=== PATIENT | female | born 1935 | race Caucasian/White ===

== ENCOUNTER 2017-08-06 16:49 | Inpatient (IN) | payer MEDICARE ==
[2017-08-06 17:18] VITALS: BMI 32.5
[2017-08-06] MEDS ORDERED: Ibuprofen 400 MG TAB PER TUBE PRN (19:03)
[2017-08-06] MEDS: Oxybutynin 5 MG TAB PER TUBE SCH (21:38)
[2017-08-06] MEDS: Furosemide 40 MG TAB PER TUBE SCH (21:38)
[2017-08-06] MEDS: Metoprolol Tartrate 25 MG TAB PER TUBE SCH (21:38)
[2017-08-06] MEDS: Diphenoxylate HCl/Atropine Tablet PER TUBE SCH (21:38)
[2017-08-06] MEDS ORDERED: Gabapentin 400 MG CAP PO SCH (21:45)
[2017-08-06] MEDS: SACUBITRIL PER TUBE SCH (21:46)
[2017-08-06] MEDS: VALSARTAN PER TUBE SCH (21:46)
[2017-08-06 23:06] LABS: Bilirubin Negative (Negative); Blood, Urine Trace (Negative); Clarity Clear (Clear); Glucose, Urine (Dipstick) Negative (Negative); Leukocyte Small (Negative); Nitrite Positive (Negative); Protein, Urine (Dipstick) Negative (Neg-Trace); Specific Gravity, Urine 1.015 (1.005-1.030); Urobilinogen 0.2 mg/dL (0.2-1.0)
[2017-08-06 23:16] LABS: Bacteria/HPF Rare-Few HPF (None Seen); Squamous Epithelial 0-3 HPF (0-3)
[2017-08-07] MEDS: Promethazine 25 MG TAB PER TUBE PRN ×2 (00:09→17:34)
[2017-08-07 05:14] LABS: #Basophils 0.1 thou/uL (0.0-0.2); #Eosinphils 0.3 thou/uL (0.0-0.7); #Lymphocytes 0.9 thou/uL (1.20-3.40); #Monocytes 0.9 thou/uL (0.11-0.59); #Neutrophils 7.5 thou/uL (1.40-6.50); %Basophils 1.1 % (0.0-1.0); %Eosinophils 3.2 % (0.0-10.0); %Lymphocytes 9.3 % (21.0-51.0); %Monocytes 8.8 % (0.0-10.0); %Neutrophils 77.6 % (42.0-75.0); Hemoglobin 13.1 g/dL (12.0-16.0); Mean Corpuscular HGB CONC 32.1 g/dL (32.0-36.0); Mean Corpuscular Hemoglobin 29.7 pg (27.0-31.0); Mean Corpuscular Volume 92.6 fl (81.0-99.0); Mean Platelet Volume 10.9 fL (7.4-10.4); Platelet Count 259 thou/uL (130-400); White Blood Cell (WBC) Count 9.6 thou/uL (4.8-10.8)
[2017-08-07 05:32] LABS: ALT (SGPT) 20 U/L (8-55); AST (SGOT) 27 U/L (5-34); Alkaline Phosphatase 72 U/L (40-150); Anion Gap 11 mmol/L (10-20); BUN (Urea Nitrogen) 15 mg/dL (9.8-20.1); Bilirubin, Total 0.2 mg/dL (0.2-1.2); Calc. Creatinine Clearance 103 mL/min (70-130); Carbon Dioxide 36 mmol/L (23-31); Chloride 91 mmol/L (98-107); Estimated GFR-MDRD Greater than 90; Globulin 2.8 g/dL (2.4-3.5); Glucose 137 mg/dL (83-110); Protein, Total 5.8 g/dL (6.0-8.3); Sodium 134 mmol/L (136-145)
[2017-08-07] MEDS: Levothyroxine 150 MCG TAB PER TUBE SCH (05:36)
[2017-08-07] MEDS ORDERED: Meloxicam 7.5 MG TAB PER TUBE SCH ×2 (09:00)
[2017-08-07] MEDS: CeleCOXIB 100 MG CAP PER TUBE SCH (09:02)
[2017-08-07] MEDS: Gabapentin 300 MG CAP PO SCH (09:03)
[2017-08-07] MEDS: Potassium Chloride 10 MEQ TAB PER TUBE SCH (09:03)
[2017-08-07] MEDS: Primidone 50 MG TAB PER TUBE SCH (09:03)
[2017-08-07] MEDS: Furosemide 40 MG TAB PER TUBE SCH ×2 (09:04→21:22)
[2017-08-07] MEDS: Diphenoxylate HCl/Atropine Tablet PER TUBE SCH ×4 (09:04→21:21)
[2017-08-07] MEDS: Citalopram 10 MG TAB PER TUBE SCH (09:04)
[2017-08-07] MEDS: Oxybutynin 5 MG TAB PER TUBE SCH ×4 (09:04→21:22)
[2017-08-07] MEDS: Aspirin 325 MG TAB PER TUBE SCH (09:04)
[2017-08-07] MEDS: Metoprolol Tartrate 25 MG TAB PER TUBE SCH ×2 (09:04→21:21)
--- NOTE | 2017-08-07 11:02 | HP ---
DATE OF SERVICE: 08/07/2017 HISTORY OF PRESENT ILLNESS: Ms. Shirley is an 82-year-old morbidly obese white female who initially p resented to [facility], lethargic, confused with mental status changes. She had a chest x-ray which revealed a dense right peritracheal left basilar atelectasis or infiltrate. CT s can without contrast showed a severely dilated fluid-filled esophagus. Dr. Pratt scoped her and found large amount of solids and liquids in the esophagus all the way up to esophageal sphincter. Th byron were removed. The patient was placed in the hospital under the diagnosis of pneumonia. She was treated with antibiotics and unfortunately had some ST wave changes and indeterminate troponin. She had a cardiac catheterization done by Dr. Jaramillo, which did reveal first diagonal branch of the left anterior descending coronary artery had a 60% stenosis. Otherwise, blood vessels were open. She did have a stress-induced cardiomyopathy with a left ventricular ejection fraction of 25%-29%. She was also noted to have acute systolic and diastolic congestive heart failure, which is a significant decr ease from her baseline. Dr. Jaramillo thought it was a stress induced stress related cardiomyopathy. Patient also had difficulty with her PEG tube and I was told that her J tube replaced by Surgery, but she states that they could not find a J tube, so they did not. Nonetheless, patient was stabilized, was transferred here because of extreme weakness because she als o has a right hbjcd-[id number]-wwwu amputation. SUBJECTIVE: The patient states she is doing well except when they transferred her medications from [facility] to this hospital, they messed them all up, so we went over those in detail. PAST MEDICAL HISTORY: Significant for multiple problems including, 1. Achalasia which was diagnosed at [facility]. 2. COPD. 3. Parkinson's, followed by Dr. Frye. 4. Chronic pain, followed by Dr. Frye, 5. Recurrent small-bowel obstruction. 6. Reflex sympathetic dystrophy, followed by Dr. Hensley. 7. Hypothyroidism. 8. History of aspiration pneumonia, followed by Dr. Vaughn. 9. 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 10. Diverticulosis. 11. Macular degeneration. 12. Systolic and diastolic congestive heart failure with the stress-induced cardiomyopathy, EF 25%-2 9%. 13. Hypothyroidism. 14. Hypertension. 15. Reflux with hiatal hernia. 16. Chronic diarrhea for which she states she takes oxybutynin 5 mg 2 pills 4 times a day. 17. Esophageal stricture with multiple dilatations in the past with a history of Rock's esophagit is and duodenal stricture presently on chronic J tube feeding. 18. Urinary tract infection. 19. Fibromyalgia. 20. Osteoarthritis. 21. Rheumatoid arthritis since 12/2012, mainly the hips, ankles, knees, and hands. 22. Right gnldr-ink-qijp amputations secondary to joint replacement for which the patient was found to be allergic to metal and the implant. 23. Obesity. CONSULTANTS: 1. Gastroenterology, Dr. Pratt. 2. Neurology, Dr. Frye. 3. Chronic pain management, Dr. Frye. 4. Orthopedist Dr. Ware. 5. Worksite Wellness Practitioner, Dr. Vaughn. 6. Traffic Worker, Dr. Hensley. 7. Urologist, Dr. Espinal. 8. GI at [facility], Dr. Barrett. 9. Primary care physician, Dr. Sanchez/Dr. Donnelly. PAST SURGICAL HISTORY: Reveals the patient has had, 1. Tonsillectomy. 2. Thyroidectomy, partial. 3. x3. 4. Hernia repair. 5. Hysterectomy in 1981. 5. Bilateral shoulder replacements. 6. Left knee replaced x2. 7. Right knee gpyvg-sik-jzcu amputation in 2008. 8. In 1981 Bryce mesh placed over stomach for reflux, for GERD done at [facility] in [facility]. 8. Knee replacements. 9. Colonoscopy in 2009. 10. Esophageal dilatation, multiple times. 11. PEG tube placement at [facility]. 12. J tube placement. FAMILY HISTORY: Reveals patient's father had hypothyroidism and glaucoma. The patient's mother had dementia, hypothyroidism, and rheumatoid arthritis. SOCIAL HISTORY: Reveals the patient is . She has 5 children. 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 She lives by herself, but has a da ughter that looks in on her that she states aggravates her and son that recently moved in, but is not very much help. Patient never smoked. She drinks alcohol about 4 ounces daily, mainly in the form of wine. ALLERGIES: Reveals patient is allergic to the followin. CODEINE. 2. MORPHINE. 3. ULTRAM. 4. VICODIN. 5. NAPROSYN. 6. TETRACYCLINE. 7. KEFLEX. 8. SINEMET. 9. QUESTRAN. PRESENT MEDICATIONS: Reveal the patient presently takes the followin. Celebrex 200 mg 1 daily and then meloxicam 15 mg the next day and she alternates these because of the cost of Celebrex. 2. Demerol 50 mg 1 tablet by mouth p.r.n. severe pain. She states Dr. Frye gives her these and s he may take 2-3 in a week. 3. Lomotil p.r.n. 4. Imodium A-D p.r.n. 5. Oxybutynin 2 tablets 3-4 times a day, 5 mg. 6. Levothyroxine 150 mcg daily. 7. Meclizine 1 tablet 4 times a day p.r.n. 8. Primidone 50 mg. 9. Valium 2-3 tabs a day. 10. Gabapentin she takes 1800 mg in the morning and 1200 mg at night. 11. Oxybutynin Extended Release 2 tabs by mouth at bedtime. REVIEW OF SYSTEMS: The patient denies fever or chills. She states she is fatigued. Cardiovascular bobby, the patient denies any chest pain, palpitations or irregular heartbeat. Pulmonary-bobby, she do es have shortness of breath especially with exertion. She has no chronic wheezes or cough. GI bobby, patient is unable to swallow anything at this time and has Speech Therapy look at her and she presen tly in the [facility] protocol. She denies any abdominal pain, nausea, vomiting or diarrhea. She states she actually does have diarrhea all the time and is controlled with oxybutynin 2 pills 4 time s a day. The patient denies any dysuria today. The patient does admit to generalized weakness. PHYSICAL EXAMINATION: GENERAL: This is a well-developed, well-nourished, very pleasant white female, in no apparent distre ss at this time. HEENT: Reveals normocephalic, nontraumatic cranium. Pupils were equally round and reactive. Extrao cular movements are intact. The nose and throat are slightly dry, but clear. NECK: Supple, without masses, nodes or bruits. CHEST: Clear to auscultation. No rales, no rhonchi, no wheezes are heard. HEART: Reveals a regular rate and rhythm with a 2/6 systolic ejection murmur. ABDOMEN: Morbidly obese, soft, nontender, without organomegaly. Normal bowel sounds are noted. No rebound or guarding is noted. J tube is noted in the left mid upper quadrant. GENITOURINARY: Deferred. EXTREMITIES: Reveal right xllao-dmj-nzqd amputation, which is well healed. Left lower extremity is clear. ASSESSMENT: 1. This is a pleasant 82-year-old white female with admission to [facility] for treatment with esophageal stricture with multiple food particles and possible aspiration developing p neumonia. 2. Generalized weakness. 3. Acute systolic and diastolic congestive heart failure with left ejection fraction 25%. 4. LifeVest. 5. Esophageal stricture with malfunctioned J-tube. 6. Acute hypoxic on chronic respiratory failure, patient at baseline 2 liters per nasal cannula. 7. CY-OKA-ZALRNOAS. 8. Achalasia. 9. Chronic obstructive pulmonary disease. 10. Chronic pain. 11. Reflex sympathetic dystrophy followed by Dr. Hensley. 12. Hypothyroidism. 13. Rock esophagitis. 14. Diverticulosis. 15. Rheumatoid arthritis. 16. Macular degeneration. PLAN: 1. Continue to follow the patient closely and adjust her medications as needed. 2. Physical Therapy and Occupational Therapy. 3. Speech Therapy consult, which has already been done, the patient is presently on the Alonzo mcduffie r protocol, otherwise n.p.o. unless she has to have something and she is on honey or nectar thickened liquids only. 4. Continue to follow the patient's labs closely. 5. Stress ulcer prophylaxis. 6. DVT prophylaxis and decubitus precautions. 7. Consult Physical Therapy and Occupational Therapy.
[2017-08-07] MEDS: VALSARTAN PER TUBE SCH ×2 (13:16→21:24)
[2017-08-07] MEDS: SACUBITRIL PER TUBE SCH ×2 (13:16→21:24)
[2017-08-07] MEDS: Gabapentin 400 MG CAP PO SCH (17:34)
[2017-08-07] MEDS: Meclizine HCl 25 MG TAB PER TUBE PRN (17:34)
[2017-08-08] MEDS: Ondansetron ODT 4 MG TAB PO PRN ×2 (02:03→21:01)
[2017-08-08] MEDS: Levothyroxine 150 MCG TAB PER TUBE SCH (06:33)
[2017-08-08] MEDS ORDERED: Guaifenesin DM 100-10/5 ML UDCUP PO PRN (07:16)
[2017-08-08] MEDS: Gabapentin 300 MG CAP PO SCH (07:58)
[2017-08-08] MEDS: Diphenoxylate HCl/Atropine Tablet PER TUBE SCH ×4 (07:58→21:02)
[2017-08-08] MEDS: Aspirin 325 MG TAB PER TUBE SCH (07:59)
[2017-08-08] MEDS: Primidone 50 MG TAB PER TUBE SCH (07:59)
[2017-08-08] MEDS: Metoprolol Tartrate 25 MG TAB PER TUBE SCH ×2 (07:59→21:02)
[2017-08-08] MEDS: Potassium Chloride 10 MEQ TAB PER TUBE SCH (07:59)
[2017-08-08] MEDS: CeleCOXIB 100 MG CAP PER TUBE SCH (08:00)
[2017-08-08] MEDS: Furosemide 40 MG TAB PER TUBE SCH ×2 (08:00→21:02)
[2017-08-08] MEDS: Oxybutynin 5 MG TAB PER TUBE SCH ×4 (08:00→21:02)
[2017-08-08] MEDS: Citalopram 10 MG TAB PER TUBE SCH (08:00)
[2017-08-08] MEDS: SACUBITRIL PER TUBE SCH ×2 (08:01→21:17)
[2017-08-08] MEDS: VALSARTAN PER TUBE SCH ×2 (08:01→21:17)
[2017-08-08] MEDS ORDERED: CeleCOXIB 100 MG CAP PER TUBE SCH (09:00)
--- NOTE | 2017-08-08 09:25 | PRG ---
DATE OF SERVICE: 08/08/2017 DATE OF ADMISSION: 08/06/2017 HISTORY OF PRESENT ILLNESS: Ms. Shirley is an 82-year-old white female that presented to [facility] with mental status changes. She has significantly dilated fluid-filled esophagus. Dr. Pratt scoped her and found a large amount of solids and liquids. The patient was placed in the hospital, and she also had pneumonia. She was treated with antibiotics. Had an indeterminate t roponin with ST-wave changes. She went to cardiac catheterization and Dr. Villafana found a first diago nal branch of the left anterior descending with a 60% stenosis. She also was found to have stress-in duced cardiomyopathy with left ventricular ejection fraction of 25%-29%. She also had acute systolic and diastolic congestive heart failure, which was different from her baseline. She had difficulty w ith her PEG tube and I was told that her J-tube was placed by Surgery, but she did not confirm that. The patient was eventually stabilized and transferred to [facility] for physical therapy and occupational therapy. SUBJECTIVE: The patient said she did not get her meclizine yesterday, and I told her that it was ord ered p.r.n. She also says she did not get her Valium last night, which she takes 30 mg at night. I told her that was way too much that would give her respiratory arrest and we were going to do that. We will give her 10 mg up to t.i.d. If she wants she can only take 10 mg at that bedtime. She agree s with that. OBJECTIVE: VITAL SIGNS: Reveal blood pressure 115/63, pulse 71, respirations 20, O2 of 93% on 3-4 liters nasal cannula, T-max 97.9. GENERAL: This is a well-developed, well-nourished, very pleasant white female, in no apparent distre ss at this time. HEENT: Reveals normocephalic, nontraumatic cranium. Pupils are equally round and reactive. Extraoc ular movements intact. Nose and throat are slightly dry. NECK: Supple, without masses, nodes, or bruits. CHEST: Clear to auscultation. No rales or rhonchi are heard, but wheezes are heard, which are expir atory. Patient has been refusing her nebulizer treatments, and we did talk about her continuing to g et those. CARDIOVASCULAR: Reveals a regular rate and rhythm. A 2/6 systolic ejection murmur is noted. ABDOMEN: Morbidly obese and soft and nontender. J-tube is functioning well. It is not red or irrit ated. GENITOURINARY EXAM: Deferred. EXTREMITIES: Reveal right tkubz-ydo-emiu amputation, which is well healed. Left lower extremity con tinues to be without edema. LABORATORY DATA: No labs were done today. We will repeat labs tomorrow. IMPRESSION: 1. Significant esophageal stricture with J-tube placement. 2. Generalized weakness. 3. Acute systolic and diastolic congestive heart failure with left ejection fraction 25%-29%. 4. LifeVest. 5. Esophageal stricture with malfunctioning J-tube, which has been either replaced or repaired. 6. Acute hypoxemia on chronic respiratory failure. The patient usually at baseline 2 liters per iris al cannula. 7. Patient is a DO NOT INTUBATE. 8. Achalasia. 9. Chronic obstructive pulmonary disease. 10. Chronic pain. 11. Reflex sympathetic dystrophy followed by Dr. Hensley. 12. Hypothyroidism. 13. Rock's esophagitis. 14. Diverticulosis. 15. Rheumatoid arthritis. 16. Macular degeneration. 17. Generalized weakness. PLAN: 1. We will start the patient on some Robitussin-DM for occasional cough. 2. We will repeat labs tomorrow morning. 3. We will continue meclizine p.r.n. 4. Diazepam 10 mg up to 3 times a day. 5. Encouraged the patient to drink water. 6. Stress ulcer prophylaxis. 7. Decubitus precautions. 8. Physical therapy and occupational therapy. 9. Speech therapy. 10. Deep vein thrombosis prophylaxis.
[2017-08-08] MEDS: Gabapentin 400 MG CAP PO SCH (18:52)
[2017-08-08] MEDS: Diazepam 5 MG TAB PO PRN (21:01)
[2017-08-08] MEDS: Meclizine HCl 25 MG TAB PER TUBE PRN (21:02)
[2017-08-09] MEDS: Ondansetron ODT 4 MG TAB PO PRN ×2 (01:56→06:02)
[2017-08-09 05:27] LABS: #Basophils 0.1 thou/uL (0.0-0.2); #Eosinphils 0.4 thou/uL (0.0-0.7); #Lymphocytes 0.9 thou/uL (1.20-3.40); #Neutrophils 7.8 thou/uL (1.40-6.50); %Eosinophils 3.4 % (0.0-10.0); %Monocytes 10.2 % (0.0-10.0); %Neutrophils 76.5 % (42.0-75.0); Mean Corpuscular HGB CONC 32.1 g/dL (32.0-36.0); Mean Corpuscular Hemoglobin 29.8 pg (27.0-31.0); Mean Corpuscular Volume 92.9 fl (81.0-99.0); Mean Platelet Volume 10.5 fL (7.4-10.4); Platelet Count 250 thou/uL (130-400); RBC Distribution Width 13.1 % (11.5-14.5); Red Blood Cell (RBC) Count 4.37 mill/uL (4.20-5.40); White Blood Cell (WBC) Count 10.3 thou/uL (4.8-10.8)
[2017-08-09] MEDS: Levothyroxine 150 MCG TAB PER TUBE SCH (05:29)
[2017-08-09] MEDS: Diazepam 5 MG TAB PO PRN ×2 (05:36→21:20)
[2017-08-09 05:50] LABS: ALT (SGPT) 28 U/L (8-55); AST (SGOT) 29 U/L (5-34); Albumin 3.1 g/dL (3.4-4.8); Alkaline Phosphatase 84 U/L (40-150); Anion Gap 11 mmol/L (10-20); BUN (Urea Nitrogen) 18 mg/dL (9.8-20.1); Bilirubin, Total 0.4 mg/dL (0.2-1.2); Calc. Creatinine Clearance 98 mL/min (70-130); Calcium 9.2 mg/dL (7.8-10.44); Carbon Dioxide 37 mmol/L (23-31); Chloride 92 mmol/L (98-107); Estimated GFR-MDRD Greater than 90; Globulin 2.9 g/dL (2.4-3.5); Glucose 130 mg/dL (83-110); Potassium 4.3 mmol/L (3.5-5.1); Sodium 136 mmol/L (136-145)
[2017-08-09] MEDS: Primidone 50 MG TAB PER TUBE SCH (08:21)
[2017-08-09] MEDS: Citalopram 10 MG TAB PER TUBE SCH (08:21)
[2017-08-09] MEDS: Gabapentin 300 MG CAP PO SCH (08:21)
[2017-08-09] MEDS: Oxybutynin 5 MG TAB PER TUBE SCH ×4 (08:22→21:19)
[2017-08-09] MEDS: Furosemide 40 MG TAB PER TUBE SCH ×2 (08:22→21:19)
[2017-08-09] MEDS: Potassium Chloride 10 MEQ TAB PER TUBE SCH (08:22)
[2017-08-09] MEDS: Metoprolol Tartrate 25 MG TAB PER TUBE SCH ×2 (08:23→21:20)
[2017-08-09] MEDS: Aspirin 325 MG TAB PER TUBE SCH (08:23)
[2017-08-09] MEDS: CeleCOXIB 100 MG CAP PER TUBE SCH (08:23)
[2017-08-09] MEDS: VALSARTAN PER TUBE SCH (09:01)
[2017-08-09] MEDS: SACUBITRIL PER TUBE SCH (09:01)
[2017-08-09] MEDS: Diphenoxylate HCl/Atropine Tablet PER TUBE SCH ×4 (14:02→21:19)
[2017-08-09] MEDS: Gabapentin 400 MG CAP PO SCH (17:07)
[2017-08-09] MEDS: Meclizine HCl 25 MG TAB PER TUBE PRN (21:19)
[2017-08-09] MEDS: Sacubitril 24.5 MG/Valsartan 25.5 MG TABLET PER TUBE SCH (21:20)
--- NOTE | 2017-08-09 22:12 | PRG ---
DATE OF ADMISSION: 08/06/2017 DATE OF SERVICE: 08/09/2017 HISTORY OF PRESENT ILLNESS: Ms. Shirley is a very pleasant 82-year-old white female that was admitted to [facility] with mental status changes. She was found to have a dilated fluid filled esophagus and Dr. Pratt had scoped her and removed all the solids and liquids. She was p laced in the hospital and also had pneumonia. She was treated with antibiotics. She had indetermina te troponins with ST wave changes. Unfortunately, she did have a cardiac catheterization and Dr. Kranthi calderon found a first diagonal branch of the left anterior descending with a 60% stenosis, otherwise open . She also had a stress-induced cardiomyopathy with left ventricular ejection fraction of 25%-29%. She had acute systolic and diastolic heart failure, which was different from her baseline. Eventuall y, she was stabilized, a PEG tube was placed and actually a J-tube was replaced by Surgery. The manjit ent was eventually stabilized and transferred to [facility] PT and OT. SUBJECTIVE: The patient has no complaints today except she would like her meclizine schedule rather than p.r.n., I would rather not do that. Nonetheless, otherwise she is doing somewhat better. OBJECTIVE: VITAL SIGNS: Revealed blood pressure this morning was 131/82, pulse 59-76, respirations 17-20, O2 sa t 94% on 3-3.5 liters. LABORATORY DATA: Reveals white counts 10,000, hemoglobin 13, hematocrit 40.6, platelet count 250,000 . Electrolytes reveal sodium 136, potassium 4.3, chloride 92, carbon dioxide 37 with a creatinine of 0. 61, GFR greater than 90. Her BNP is 151. PHYSICAL EXAMINATION: GENERAL: This is a well-developed, well-nourished, very pleasant, morbidly obese white female in no apparent distress at this time. HEENT: Reveals normocephalic, nontraumatic cranium. Pupils are equally round and reactive. Extraoc ular movements intact. Nose and throat are still slightly dry. NECK: Supple, without masses, nodes or bruits. LUNGS: Chest is clear to auscultation. No rales, no rhonchi, no wheezes were heard. No cough is no kehinde. The patient is refusing nebulizer treatments, but we will need to continue those for at least p .r.n. HEART: Reveals a regular rate and rhythm. A 2/6 systolic ejection murmur is noted. ABDOMEN: Morbidly obese and soft. It is nontender, no rebound or guarding is noted. J-tube is func tioning well. It is not red, irritated or leaking. GENITOURINARY: Deferred. EXTREMITIES: Reveal right xpnww-jnk-rwtc amputation, well healed. Left lower extremity continues to be without edema. IMPRESSION: 1. Esophageal stricture with J-tube placement. 2. Generalized weakness secondary to acute systolic and diastolic congestive heart failure with left ejection fraction 25%-29%. 3. LifeVest. 4. Esophageal stricture with malfunctioning J-tube, which has been either replaced or repaired. 5. Acute hypoxemia on chronic respiratory failure. 6. The patient is a do not intubate. 7. Achalasia. 8. Chronic obstructive pulmonary disease. 9. Chronic pain. 10. Reflex sympathetic dystrophy followed by Dr. Hensley. 11. Hypothyroidism. 12. Rock's esophagitis. 13. Diverticulosis. 14. Rheumatoid arthritis. 15. Macular degeneration. 16. Generalized weakness. PLAN: 1. Continue meclizine p.r.n. 2. Diazepam 10 mg p.r.n. up to 3 times daily. 3. Encourage the patient to drink water. 4. Stress ulcer prophylaxis. 5. Decubitus precautions. 6. Physical therapy and occupational therapy. 7. Speech therapy. 8. Deep venous thrombosis prophylaxis. 9. Do not intubate.
[2017-08-10] MEDS: Levothyroxine 150 MCG TAB PER TUBE SCH (06:05)
[2017-08-10] MEDS: Gabapentin 300 MG CAP PO SCH (08:59)
[2017-08-10] MEDS: Sacubitril 24.5 MG/Valsartan 25.5 MG TABLET PER TUBE SCH ×2 (09:00→21:13)
[2017-08-10] MEDS: CeleCOXIB 100 MG CAP PER TUBE SCH (09:00)
[2017-08-10] MEDS: Furosemide 40 MG TAB PER TUBE SCH ×2 (09:00→21:14)
[2017-08-10] MEDS: Potassium Chloride 10 MEQ TAB PER TUBE SCH (09:00)
[2017-08-10] MEDS: Diphenoxylate HCl/Atropine Tablet PER TUBE SCH ×4 (09:01→21:13)
[2017-08-10] MEDS: Primidone 50 MG TAB PER TUBE SCH (09:01)
[2017-08-10] MEDS: Metoprolol Tartrate 25 MG TAB PER TUBE SCH ×2 (09:02→21:12)
[2017-08-10] MEDS: Aspirin 325 MG TAB PER TUBE SCH (09:02)
[2017-08-10] MEDS: Citalopram 10 MG TAB PER TUBE SCH (09:02)
[2017-08-10] MEDS: Oxybutynin 5 MG TAB PER TUBE SCH ×4 (09:02→21:14)
[2017-08-10] MEDS: Promethazine 25 MG TAB PER TUBE PRN (09:19)
[2017-08-10] MEDS: Gabapentin 400 MG CAP PO SCH (17:36)
[2017-08-10] MEDS: Meclizine HCl 25 MG TAB PER TUBE PRN (21:10)
[2017-08-10] MEDS: Ondansetron ODT 4 MG TAB PO PRN (21:10)
[2017-08-10] MEDS: Diazepam 5 MG TAB PO PRN (21:14)
--- NOTE | 2017-08-11 02:15 | PRG ---
DATE OF SERVICE: 08/10/2017 SUBJECTIVE: Ms. Shirley is a very pleasant 82-year-old white female that is very persistent about the way she would like to take her medicines whether it is appropriate or not. Patient apparently was brought to [facility] with mental status changes. She had a dilated fluid filled esophagus. Dr. Pratt had to suction it all out. She was placed in the h ospital and had pneumonia. She was treated with antibiotics. She also had indeterminate troponins w ith ST-T wave changes. Unfortunately, she did have a cardiac catheterization and Dr. Jaramillo found th e first diagonal branch of left anterior descending with 60% stenosis. She had stress-induced cardio myopathy with left ventricular ejection fraction 25-29%. She had acute systolic and diastolic heart failure which was different from her baseline. Eventually, she was stabilized and transferred with a PEG tube which was switched her J tube. Patient was transferred to [facility] for physical therapy and occupational therapy. The patient states she is doing well except she would like her me clizine scheduled rather than p.r.n. I told her yesterday that we would not do that. OBJECTIVE: VITAL SIGNS: Reveal blood pressure this morning 110/74, pulse 59-74, respirations 18-20, O2 sat 94% on 3 liters nasal cannula. T-max 98.2. No labs were done today. GENERAL: This is a well-developed, well-nourished, morbidly obese white female in no apparent distre ss at this time. HEENT: Reveals normocephalic, nontraumatic cranium. Pupils are equally round and reactive. Extraoc ular movements are intact. Nose and throat are slightly dry. NECK: Supple, without masses, nodes or bruits. LUNGS: Chest is clear to auscultation. No rales, rhonchi or wheezes are heard. CARDIOVASCULAR: Reveals a regular rate and rhythm without murmurs, gallops or rubs. Patient does milan ve a 2/6 systolic ejection murmur. ABDOMEN: Morbidly obese, soft, nontender, without organomegaly. Normal bowel sounds are noted. J t ube is still functioning well. It is not red, irritated or leaking. : Deferred. 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 Left lower extremity cont inues to be without any edema. IMPRESSION: 1. Esophageal stricture with placement of J tube and feedings. 2. Generalized weakness. 3. Acute systolic and diastolic congestive heart failure with an ejection fraction of 25-29%. 4. LifeVest. 5. Esophageal stricture. 6. Acute hypoxemia on chronic respiratory failure. 7. Patient is DO NOT INTUBATE. 8. Achalasia. 9. Chronic obstructive pulmonary disease. 10. Chronic pain. 11. Reflex sympathetic dystrophy followed by Dr. Hensley. 12. Hypothyroidism. 13. Rock's esophagitis. 14. Diverticulosis. 15. Rheumatoid arthritis. 16. Macular degeneration. 17. Generalized weakness. PLAN: 1. Continue meclizine p.r.n. 2. Diazepam 10 mg p.r.n. up to 3 times daily. 3. Encourage the patient to drink water. 4. Stress ulcer prophylaxis. 5. Decubitus precautions. 6. Speech therapy. 7. Continue physical therapy and occupational therapy. 8. Deep venous thrombosis prophylaxis. 9. DO NOT INTUBATE.
[2017-08-11] MEDS: Levothyroxine 150 MCG TAB PER TUBE SCH (06:25)
[2017-08-11] MEDS: Potassium Chloride 10 MEQ TAB PER TUBE SCH (09:38)
[2017-08-11] MEDS: Primidone 50 MG TAB PER TUBE SCH (09:39)
[2017-08-11] MEDS: Aspirin 325 MG TAB PER TUBE SCH (09:39)
[2017-08-11] MEDS: Gabapentin 300 MG CAP PO SCH (09:39)
[2017-08-11] MEDS: Citalopram 10 MG TAB PER TUBE SCH (09:40)
[2017-08-11] MEDS: Diphenoxylate HCl/Atropine Tablet PER TUBE SCH ×4 (09:40→22:14)
[2017-08-11] MEDS: Metoprolol Tartrate 25 MG TAB PER TUBE SCH ×2 (09:40→22:14)
[2017-08-11] MEDS: Sacubitril 24.5 MG/Valsartan 25.5 MG TABLET PER TUBE SCH ×2 (09:40→22:14)
[2017-08-11] MEDS: Furosemide 40 MG TAB PER TUBE SCH ×2 (09:40→22:14)
[2017-08-11] MEDS: Oxybutynin 5 MG TAB PER TUBE SCH ×4 (09:40→22:14)
[2017-08-11] MEDS: CeleCOXIB 100 MG CAP PER TUBE SCH (09:40)
[2017-08-11] MEDS: Ondansetron ODT 4 MG TAB PO PRN (09:54)
[2017-08-11] MEDS: Promethazine 25 MG TAB PER TUBE PRN (13:08)
[2017-08-11] MEDS: Meclizine HCl 25 MG TAB PER TUBE PRN (13:10)
[2017-08-11] MEDS: Gabapentin 400 MG CAP PO SCH (19:09)
--- NOTE | 2017-08-11 21:24 | PRG ---
DATE OF SERVICE: 08/11/2017 HISTORY OF PRESENT ILLNESS: Ms. Shirley is an 82-year-old white female brought to [facility] with mental status changes. She had a dilated fluid filled esophagus. Dr. Pratt did an EGD and suctioned out all the fluids. She also had indeterminate troponins with ST-T wave change s. She did have a cardiac catheterization. Dr. Jay found his first diagonal branch of the left a nterior descending with 60% stenosis. She also has stress-induced cardiomyopathy, left ventricular e jection fraction of 25-29%. She had acute systolic and diastolic heart failure which is different fr om her baseline. Eventually, she was stabilized and transferred with a J tube to [facility] for continued feedings and physical therapy and occupational therapy. SUBJECTIVE: The patient, this afternoon probably between 4:30 and 6:30, became poorly responsive. A code green was called and patient was brought down to the emergency room where she was evaluated by the ER physician. She was awake and alert and talkative, but much less responsive than usual. They ended up doing a chest CT with contrast and had some extravasation of some of the dye from the esopha tamanna into the chest cavity. This indicates most likely esophageal rupture or perforation. The patient was told about this and whether she would like to go to [facility] fo r further evaluation by a GI specialist and possibly have a surgery, she said definitely not. She di d not want to have any more surgery, she did not want any significant intervention done on her. She states she did not want to be intubated. She states she does not want CPR. In fact, she says she wa nts to become a DNR. I reiterated that again with that meant and that we would possibly call in hosp ice, she said that was fine. Then she asked me to call her son, Kyler and give him the news. I did call Kyler Shirley the son and indicated that his mom was ill and that she did not want to do an y further surgeries, did not want to be intubated, and did not want to go back to the hospital in [place]. He felt he understood. I did explain to him the ramifications of the perforated esoph rehan and he said he understood. Patient is alert and coherent, oriented and request DNR. SUBJECTIVE: VITAL SIGNS: At this time reveal blood pressure this morning 158/70, pulse 59-66, respirations 20, O 2 sat 92% on 3 to 3-1/2 liters. GENERAL: Reveals a well-developed, well-nourished, morbidly obese white female in no apparent distre ss at this time. HEENT: Reveals normocephalic, nontraumatic cranium. Pupils are equally round and reactive. Extraoc ular movements are intact. Nose and throat are slightly dry. NECK: Supple, without masses, nodes or bruits. IJ is noted in the left internal jugular vein as acc ess from the ER. LUNGS: Chest is distant. No rales, no rhonchi, no wheezes are heard. CARDIOVASCULAR: Reveals a regular rate and rhythm without murmurs, gallops or rubs. The patient church s have a 2/6 systolic ejection murmur. ABDOMEN: Morbidly obese, soft, nontender. Normal bowel sounds are still heard. J tube is still fun ctioning, not red, not irritated, no infiltrate. : Deferred. 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 Left lower extremity cont inues to have no significant edema at this time. IMPRESSION: 1. Most likely esophageal rupture or perforation. 2. Generalized weakness. 3. Acute systolic and diastolic congestive heart failure with ejection fraction of 25-30%. 4. LifeVest. 5. Esophageal stricture. 6. Acute hypoxia on top of chronic respiratory failure. 7. Patient is now a DNR. 8. Achalasia. 9. Chronic obstructive pulmonary disease. 10. Chronic pain. 11. Reflex sympathetic dystrophy followed by Dr. Mello. 12. Hypothyroidism. 13. Rock's esophagitis. 14. Diverticulosis. 15. Rheumatoid arthritis. 16. Macular degeneration. 17. Generalized weakness. PLAN: 1. Continue present medications. 2. Stress ulcer prophylaxis. 3. The patient is n.p.o. 4. Decubitus precautions. 5. Speech therapy. 6. Continue PT and OT. 7. Deep venous thrombosis prophylaxis. 8. DO NOT INTUBATE and the patient is a DNR. 9. We will discuss hospice tomorrow.
[2017-08-12] MEDS: Levothyroxine 150 MCG TAB PER TUBE SCH (06:28)
[2017-08-12] MEDS: Aspirin 325 MG TAB PER TUBE SCH (09:14)
[2017-08-12] MEDS: Primidone 50 MG TAB PER TUBE SCH (09:18)
[2017-08-12] MEDS: Potassium Chloride 10 MEQ TAB PER TUBE SCH (09:18)
[2017-08-12] MEDS: Metoprolol Tartrate 25 MG TAB PER TUBE SCH ×2 (09:19→21:33)
[2017-08-12] MEDS: Sacubitril 24.5 MG/Valsartan 25.5 MG TABLET PER TUBE SCH ×2 (09:19→21:33)
[2017-08-12] MEDS: Citalopram 10 MG TAB PER TUBE SCH (09:19)
[2017-08-12] MEDS: Oxybutynin 5 MG TAB PER TUBE SCH ×4 (09:19→21:33)
[2017-08-12] MEDS: CeleCOXIB 100 MG CAP PER TUBE SCH (09:19)
[2017-08-12] MEDS: Furosemide 40 MG TAB PER TUBE SCH ×2 (09:20→21:33)
[2017-08-12] MEDS: Diphenoxylate HCl/Atropine Tablet PER TUBE SCH ×4 (09:23→21:33)
[2017-08-12] MEDS: Gabapentin 300 MG CAP PO SCH (10:21)
[2017-08-12] MEDS: Gabapentin 400 MG CAP PO SCH (17:09)
--- NOTE | 2017-08-12 18:49 | PRG ---
DATE OF SERVICE: 08/22/2017 DATE OF ADMISSION: 08/12/2017 HISTORY OF PRESENT ILLNESS: Ms. Shirley is a very pleasant 82-year-old white female brought to [facility] with mental status changes. She had a significantly dilated fluid filled es ophagus. Dr. Pratt had done an EGD and suctioned out all the fluids. She also had indeterminate troponins with ST-T wave changes. She did have a cardiac catheterization and Dr. Jaramillo found a fir st diagonal branch of the left anterior descending with a 60% stenosis. She also had a stress induce d cardiomyopathy with a left ejection fraction of 25% to 29%. She had had a history of systolic and diastolic heart failure, which is different from her baseline. She was eventually stabilized, had to have her J-tube replaced and was transferred to [facility] for continued feedings th rough the J-tube, physical therapy, and occupational therapy. Yesterday, the patient became unresponsive, brought to the ER where it took about an hour before she regained her previous responsiveness. During that time, she had a CT scan done with contrast, which revealed a leak in her esophagus. Leaked into both sides of the chest cavity. We presented the manjit ent with her alternative to go to return to [facility] where they would most like ly try to fix surgically and she said she did not want to go there. She states she was a DNR and D an d I and she was not going to have any more surgery. We did discuss hospice placement and she was giv en the opportunity to think about it overnight. This morning, the patient did say she wanted to choose the hospice for now, so she can go home and sp ent time with her little dog. She did contact hospice and they came and visited most likely will sta rt that tomorrow, we make arrangements for her to be transferred home with some type of caregivers. PHYSICAL EXAMINATION: VITAL SIGNS: Blood pressure this morning was 124/64, pulse 60 to 74, respirations 18 to 20, O2 sat 9 2% to 95% on 4 liters nasal cannula. T-max was 97.9. GENERAL: This is a well-developed, well-nourished, very pleasant, somewhat obese white female with I J catheter in her left neck. HEENT: Reveals normocephalic, nontraumatic cranium. Pupils are equally round and reactive. Extraoc ular movements intact. Nose and throat are slightly dry. NECK: Supple, without masses, nodes, or bruits. CHEST: Clear to auscultation. No rales, no rhonchi, no wheezes are heard. CARDIOVASCULAR: Reveals a regular rate and rhythm without murmurs, gallops, or rubs. ABDOMEN: Soft, obese, nontender, without organomegaly. Normal bowel sounds are noted. No rebound o r guarding is noted. : Deferred. EXTREMITIES: Reveal no clubbing, cyanosis, or edema. Right [id number] amputation is noted, whic h is well healed. LABORATORY DATA: No labs were done today per patient request. IMPRESSION: 1. Esophageal perforation. 2. Patient is now a DO NOT RESUSCITATE. 3. Generalized weakness. 4. Acute systolic and diastolic heart failure with ejection fraction 25% to 30%. 5. LifeVest, which she refused to wear at this time. 6. Esophageal stricture. 7. Acute hypoxemia on top of chronic respiratory failure. 8. Achalasia. 9. Chronic obstructive pulmonary disease. 10. Chronic pain. 11. Reflex sympathetic dystrophy, followed by Dr. Hensley. 12. Hypothyroidism. 13. Rock's esophagitis. 14. Diverticulosis. 15. Rheumatic arthritis, rheumatoid arthritis. 16. Macular degeneration. PLAN: 1. Continue present medications. 2. Continue stress ulcer prophylaxis. 3. The patient is n.p.o. at this time. 4. The patient has been seen by hospice care and we will get her equipment to her house and arrange for some type of caregivers to be there. Hospice will continue at her home most likely either Wednesday or Wednesday depending on how arrangements can be made with her caregivers. 5. Put speech therapy, physical therapy, and occupational therapy on hold. 6. The patient is refusing most of her medications. 7. The patient is a DNR and [id number]. 8. The patient has made those discussions and is awake and alert and oriented x3 to person, place, a nd time and can make that.
[2017-08-12] MEDS: Meclizine HCl 25 MG TAB PER TUBE PRN (21:39)
[2017-08-12] MEDS: Diazepam 5 MG TAB PO PRN (21:39)
[2017-08-12] MEDS: diphenhydrAMINE 25 MG CAP PER TUBE PRN (23:48)
[2017-08-13] MEDS: Levothyroxine 150 MCG TAB PER TUBE SCH (06:15)
[2017-08-13] MEDS: Potassium Chloride 10 MEQ TAB PER TUBE SCH (09:04)
[2017-08-13] MEDS: Gabapentin 300 MG CAP PO SCH (09:05)
[2017-08-13] MEDS: Diphenoxylate HCl/Atropine Tablet PER TUBE SCH ×4 (09:06→20:32)
[2017-08-13] MEDS: Aspirin 325 MG TAB PER TUBE SCH (09:06)
[2017-08-13] MEDS: Sacubitril 24.5 MG/Valsartan 25.5 MG TABLET PER TUBE SCH ×2 (09:06→20:33)
[2017-08-13] MEDS: Furosemide 40 MG TAB PER TUBE SCH ×2 (09:07→20:33)
[2017-08-13] MEDS: CeleCOXIB 100 MG CAP PER TUBE SCH (09:07)
[2017-08-13] MEDS: Citalopram 10 MG TAB PER TUBE SCH (09:07)
[2017-08-13] MEDS: Primidone 50 MG TAB PER TUBE SCH (09:07)
[2017-08-13] MEDS: Metoprolol Tartrate 25 MG TAB PER TUBE SCH ×2 (09:07→20:33)
[2017-08-13] MEDS: Oxybutynin 5 MG TAB PER TUBE SCH ×4 (09:07→20:33)
[2017-08-13] MEDS: Meclizine HCl 25 MG TAB PER TUBE PRN ×2 (09:10→20:33)
[2017-08-13] MEDS: Gabapentin 400 MG CAP PO SCH (17:00)
[2017-08-13] MEDS: diphenhydrAMINE 25 MG CAP PER TUBE PRN (20:33)
[2017-08-13] MEDS: Promethazine 25 MG TAB PER TUBE PRN (20:33)
[2017-08-13] MEDS: Diazepam 5 MG TAB PO PRN (21:55)
--- NOTE | 2017-08-13 23:48 | DIS ---
DATE OF ADMISSION: 08/06/2017 DATE OF DISCHARGE: 08/14/2017 Ms. Shirley is an 82-year-old white female who had mental status changes and was seen in the emergency room at [facility]. On x-ray and CT scan, she had significant dilated fluid-barb led esophagus. Dr. Pratt did an EGD and suction out all fluids. She also had significant cardia c problem with ST wave changes, indeterminate troponins, and she had a cardiac catheterization done b y Dr. Jaramillo. Her first diagonal branch of the left anterior descending with a 60% stenosis. She al so had a history of systolic and diastolic heart failure and an induced cardiomyopathy with left vent ricular ejection fraction of 25-29%. She eventually stabilized, had her J tube adjusted and was dover sferred to [facility] for continued feeding through the J tube, physical therapy, and occupational therapy. The patient became unresponsive while in the hospital and was sent to the ER where she had a CT scan with contrast was done, which revealed a leak in her esophagus. The patient was awake and alert and not under the influence of any narcotics and we had a significant discussion about what she wanted to do. The patient stated she did not want surgery. She said she is a DNI and now she is a DNR and she would think about it, but would most likely decide to go home w [facility] hospice. Next morning, the patient did elect to evaluate hospice and Hospice came and talked to the patient an d she signed to go home tomorrow under the care of hospice. She is a DNR, which is in the chart. SUBJECTIVE: The patient states she is doing well today. She states she would like to have some coff ee and I reiterated that if she drank some cough or drank anything most likely would go anterior ches t cavity and cause more pain and irritation, but since she was on hospice, she can do what she wants, we will try to make her comfortable, but that may make her much more uncomfortable. I recommended p ossibly putting some coffee in her mouth, swishing it around and splitting it out. Vital signs reveal blood pressure this morning was 128/68, pulse 67-69, respirations 20, O2 sat 95-96 % on 3 liters. Temperature max was 97.4. No labs were done today since the patient is a DNR. PHYSICAL EXAMINATION: GENERAL: This is a well-developed, well-nourished, awake, alert, and oriented x3 white female, in no apparent distress at this time. HEENT: Reveals normocephalic, nontraumatic cranium. Pupils are equal, round, and reactive. Extraoc ular movements are intact. Nose and throat are slightly dry, but clear. NECK: Supple, without masses, nodes, or bruits. CHEST: Clear to auscultation. No rales, rhonchi, or wheezes are heard. HEART: Reveals regular rate and rhythm without murmurs, gallops, or rubs. ABDOMEN: Soft, obese, nontender, without organomegaly, decreased bowel sounds are noted. No rebound or guarding is noted. GENITOURINARY: Deferred. EXTREMITIES: No clubbing, cyanosis, or edema. Right [id number] amputation is noted which is sti ll well healed. No labs were done today. IMPRESSION: 1. Esophageal perforation. 2. Patient is now a DO NOT RESUSCITATE. 3. Patient is on hospice. 4. Generalized weakness. 5. Acute systolic and diastolic heart failure with ejection fraction 25-30%. 6. LifeVest, which the patient was taken off since that she is not going to wear it because she is a DO NOT RESUSCITATE. 7. Esophageal stricture. 8. Acute hypoxemia on top of chronic respiratory failure. 9. Achalasia, which is chronic, initially diagnosed at [facility]. 10. Chronic obstructive pulmonary disease. 11. Chronic pain. 12. History of reflex sympathetic dystrophy followed by Dr. Mello. 13. Hypothyroidism. 14. Rock's esophagitis. 15. Diverticulosis. 16. Rheumatoid arthritis. 17. Macular degeneration. PLAN: 1. The patient is to be discharged tomorrow morning. 2. We will continue stress ulcer prophylaxis as needed. 3. The patient is n.p.o. at this time and getting her J tube. 4. Patient has been accepted by hospice care under the company of [employer]. 5. Equipments should be at her house today or tomorrow. 6. The patient is discharged off speech therapy, off physical therapy, and off occupational therapy. 7. The patient refusing most her medications anyway. 8. The patient is a DNR and as documented. 9. I did talk with the patient's son, Kyler, and he is aware of everything is happening and I answer ed all of his questions. I answered all of her questions.
[2017-08-14] MEDS: Levothyroxine 150 MCG TAB PER TUBE SCH (06:46)
[2017-08-14 07:33] VITALS: BP 160/73; TEMP 97.7
[2017-08-14] MEDS: Gabapentin 300 MG CAP PO SCH (08:58)
[2017-08-14] MEDS: CeleCOXIB 100 MG CAP PER TUBE SCH (08:59)
[2017-08-14] MEDS: Primidone 50 MG TAB PER TUBE SCH (09:00)
[2017-08-14] MEDS: Potassium Chloride 10 MEQ TAB PER TUBE SCH (09:00)
[2017-08-14] MEDS: Citalopram 10 MG TAB PER TUBE SCH (09:01)
[2017-08-14] MEDS: Oxybutynin 5 MG TAB PER TUBE SCH (09:01)
[2017-08-14] MEDS: Aspirin 325 MG TAB PER TUBE SCH (09:01)
[2017-08-14] MEDS: Diphenoxylate HCl/Atropine Tablet PER TUBE SCH (09:01)
[2017-08-14] MEDS: Furosemide 40 MG TAB PER TUBE SCH (09:01)
[2017-08-14] MEDS: Metoprolol Tartrate 25 MG TAB PER TUBE SCH (09:02)
[2017-08-14] MEDS: Meclizine HCl 25 MG TAB PER TUBE PRN (09:02)
[2017-08-14] MEDS: Sacubitril 24.5 MG/Valsartan 25.5 MG TABLET PER TUBE SCH (09:03)
== END 2017-08-14 10:30 | disposition hospice, home (50) | DRG 391 ==
LOC: NAV ACUTE 16:49
PROVIDERS: ADMIT Family Medicine; ATTEND Family Medicine
DX: K22.2 Esophageal obstruction (principal); J18.9 Pneumonia, unspecified organism; J96.21 Acute and chronic respiratory failure with hypoxia; K22.3 Perforation of esophagus; G20 Parkinson's disease; I11.0 Hypertensive heart disease with heart failure; I42.8 Other cardiomyopathies; E66.01 Morbid (severe) obesity due to excess calories; I50.42 Chronic combined systolic (congestive) and diastolic (congestive) heart failure; G90.50 Complex regional pain syndrome I, unspecified; I42.9 Cardiomyopathy, unspecified; Z51.5 Encounter for palliative care; K22.0 Achalasia of cardia; Z68.32 Body mass index [BMI] 32.0-32.9, adult; J44.9 Chronic obstructive pulmonary disease, unspecified; G89.29 Other chronic pain; E03.9 Hypothyroidism, unspecified; K20.9 Esophagitis, unspecified; K57.90 Diverticulosis of intestine, part unspecified, without perforation or abscess without bleeding; H35.30 Unspecified macular degeneration; K44.9 Diaphragmatic hernia without obstruction or gangrene; K52.9 Noninfective gastroenteritis and colitis, unspecified; M79.7 Fibromyalgia; M19.90 Unspecified osteoarthritis, unspecified site; M06.9 Rheumatoid arthritis, unspecified; Z89.611 Acquired absence of right leg above knee; Z88.8 Allergy status to other drugs, medicaments and biological substances; Z96.612 Presence of left artificial shoulder joint; Z96.611 Presence of right artificial shoulder joint; Z96.652 Presence of left artificial knee joint; Z88.1 Allergy status to other antibiotic agents; Z88.5 Allergy status to narcotic agent; Z66 Do not resuscitate
CPT/HCPCS: 36415; 36416; 80053; 81001; 83880; 85025; G8981-GP-CK; G8982-GP-CI; G8996-GN-CM; G8997-GN-CL; J7620; Q0162

== ENCOUNTER 2017-08-11 18:05 | Emergency (ER) | payer MEDICARE ==
[~2017-08-11 18:05] MED LIST: Iopamidol 370 76% 100 ML VIAL ONE
[2017-08-11] MEDS ORDERED: EPINEPHrine 1 MG/ML AMP ONE ×2 (18:14→18:15)
[2017-08-11] MEDS ORDERED: Sodium Chloride 0.9% 1,000 ML ONE (18:25)
[2017-08-11 18:28] LABS: #Basophils 0.1 thou/uL (0.0-0.2); #Eosinphils 0.2 thou/uL (0.0-0.7); #Monocytes 0.8 thou/uL (0.11-0.59); #Neutrophils 4.6 thou/uL (1.40-6.50); %Basophils 1.3 % (0.0-1.0); %Eosinophils 3.6 % (0.0-10.0); %Lymphocytes 15.1 % (21.0-51.0); %Monocytes 11.8 % (0.0-10.0); %Neutrophils 68.2 % (42.0-75.0); Hemoglobin 12.4 g/dL (12.0-16.0); Mean Corpuscular HGB CONC 31.8 g/dL (32.0-36.0); Mean Corpuscular Hemoglobin 29.6 pg (27.0-31.0); Mean Corpuscular Volume 93.1 fl (81.0-99.0); Mean Platelet Volume 9.9 fL (7.4-10.4); Platelet Count 229 thou/uL (130-400); RBC Distribution Width 13.3 % (11.5-14.5); Red Blood Cell (RBC) Count 4.17 mill/uL (4.20-5.40); White Blood Cell (WBC) Count 6.7 thou/uL (4.8-10.8)
--- NOTE | 2017-08-11 18:47 | RAD ---
SUPINE PORTABLE CHEST: 08/11/17 HISTORY: Pneumonia. There are no recent comparison exams. There is abnormal opacification in the right upper lung medially suggesting a mass lesion. The heart and the vascular markings are accentuated by this supine position. Lung bases are poorly evaluated on this study. IMPRESSION: 1. Abnormal opacification of the medial right upper lung worrisome for a mass lesion. 2. There is cardiomegaly and vascular congestion accentuated by this supine position. Lungs are poorly evaluated. POS: [facility]
[2017-08-11 18:48] LABS: Anion Gap 14 mmol/L (10-20); BUN (Urea Nitrogen) 19 mg/dL (9.8-20.1); Calc. Creatinine Clearance 0 mL/min (70-130); Calcium 9.2 mg/dL (7.8-10.44); Carbon Dioxide 35 mmol/L (23-31); Chloride 92 mmol/L (98-107); Estimated GFR-MDRD Greater than 90; Glucose 94 mg/dL (83-110); Potassium 5.1 mmol/L (3.5-5.1); Sodium 136 mmol/L (136-145)
[2017-08-11 18:56] LABS: CKMB 1.8 ng/mL (0-6.6); Troponin I 0.052 ng/mL (< 0.028)
[2017-08-11 19:24] LABS: Bilirubin Negative (Negative); Blood, Urine Negative (Negative); Clarity Clear (Clear); Glucose, Urine (Dipstick) Negative (Negative); Leukocyte Large (Negative); Nitrite Negative (Negative); Protein, Urine (Dipstick) Negative (Neg-Trace); Specific Gravity, Urine 1.015 (1.005-1.030); Urobilinogen 0.2 mg/dL (0.2-1.0); pH, Urine 6.5 (5.0-9.0)
[2017-08-11 19:41] LABS: Bacteria/HPF 3+ HPF (None Seen); RBC/HPF 0-3 HPF (0-3); Squamous Epithelial 0-3 HPF (0-3)
--- NOTE | 2017-08-11 19:59 | CT ---
HEAD CT NONCONTRAST: 08/11/17 INDICATION: Head deformity, history of stroke. FINDINGS: The ventricular system is age appropriate in size. There is mild chronic microvascular ischemic disea se without acute intracranial hemorrhage, mass effect or midline shift. The scalp soft tissues are intact. No depressed calvarial fracture. IMPRESSION: No acute intracranial hemorrhage or mass effect. POS: [facility]
--- NOTE | 2017-08-11 20:40 | CT ---
CT OF CHEST WITH CONTRAST 08/11/17 INDICATION: Deformity, abnormal chest radiograph, followup. FINDINGS: There is marked abnormal distention with a fluid filled esophagus which is tortuous and redundant thr oughout the mediastinum which does account for the radiographic opacity on preceding chest radiograph . Moderate to large bilateral pleural effusions with adjacent consolidation present bilaterally. Ther e is no pneumothorax. The upper abdomen is incompletely imaged and no reliably assessed on the basis of this exam. IMPRESSION: 1. Marked abnormal fluid filled, distended esophagus, nonspecific on the basis of this exam. Fin dings could relate to a chronic process such as achalasia. There is soft tissue density at the GE rob ction and therefore the possibility of underlying malignancy should be excluded clinically. Recommend gastroenterology consultation for further evaluation to include endoscopy. 2. Moderate to large bilateral pleural effusions with associated pulmonary parenchymal consolida tion bilaterally. POS: [facility]
[2017-08-11] MEDS ORDERED: Sodium Chloride 0.9% 500 ML ONE (20:42)
== END 2017-08-11 21:35 | disposition critical access hospital (66) ==
LOC: NAV ERS 18:05
DX: Q39.6 Congenital diverticulum of esophagus (principal); N39.0 Urinary tract infection, site not specified; I50.9 Heart failure, unspecified; E05.90 Thyrotoxicosis, unspecified without thyrotoxic crisis or storm; E78.5 Hyperlipidemia, unspecified; J44.9 Chronic obstructive pulmonary disease, unspecified
CPT/HCPCS: 36415; 51702; 70450; 71045; 71260; 80048; 81003; 81015; 82553; 83605; 83880; 84484; 85025; 87040; 87077; 87086; 87186; 93005; 94760; 96360; 96361; J0171; J7050